=== PATIENT | male | born 1990 | race Caucasian/White ===

== ENCOUNTER 2022-04-12 20:04 | Emergency (ER) | payer SELFPAY ==
[~2022-04-12] VITALS: Ht 170.2 cm; Wt 61.2 kg
[2022-04-12 20:28] VITALS: BP 112/64
--- NOTE | 2022-04-12 20:29 | NUR ---
BIBSELF C/O POSSIBLE INF L MIDDLE FINGER X5 DAYS.
[2022-04-12] MEDS ORDERED: CEPHALEXIN MONOHYDRATE 500 MG CAPSULE PO ONE ×2 (20:30)
[2022-04-12] MEDS ORDERED: LIDOCAINE /MPF 1% VIAL 5 ML VIAL ONE (20:41)
[2022-04-12] MEDS ORDERED: CEPH500C2 PO ×2 (20:57→21:07)
[2022-04-12] MEDS ORDERED: IBUPROFEN 600 MG TABLET ONE (21:05)
--- NOTE | 2022-04-12 21:08 | NUR ---
Patient discharged to home in stable condition. Written and verbal after care instructions given. Patient verbalizes understanding of instruction.
[2022-04-12] MEDS ORDERED: IBUPROFEN 600 MG TABLET PO ONE (21:30)
== END 2022-04-12 21:08 | disposition home or self-care (01) ==
LOC: ER 20:07
DX: L03.012 Cellulitis of left finger (principal); J45.909 Unspecified asthma, uncomplicated
CPT/HCPCS: 10060; 99283; A6403; J3490